=== PATIENT | female | born 1990 | race Two or more races ===

== ENCOUNTER 2024-12-01 22:54 | Emergency (ER) | payer MEDICAID, SELFPAY ==
[2024-12-01 22:55] VITALS: BMI 32.7
[2024-12-01 23:32] VITALS: BP 105/71; PULSE 77; RESP 18; TEMP 37.5; O2SAT 98
--- NOTE | 2024-12-01 23:47 | PD.EDFMALE ---
ED Female Urogenital RME/HPI General Chief complaint: Urogenital-Female Stated complaint: PAIN AND BLOOD IN URINE Time Seen by Provider: 12/01/24 23:46 Arrival date/time: 12/01/24 22:54 34F with no significant PMH presents to ED with 2 days of dysuria/hematuria and pelvic pain. Patient is not on her cycle. Limitations: no limitations Related Data Previous Rx's ?Medication ?Instructions ?Recorded naproxen 500 mg tablet (Naprosyn) 500 mg PO BID #14 tabs 03/12/23 cefuroxime axetil 500 mg tablet 500 mg PO BID 7 days #14 tabs 12/02/24 Allergies Allergy/AdvReac Type Severity Reaction Status Date / Time No Known Allergies Allergy Verified 03/12/23 10:37 Review of Systems Review of Systems Systems Reviewed: All systems reviewed, normal except as documented Genitourinary Genitourinary: Reports as per HPI, Reports dysuria and Reports hematuria Past Medical History Past Medical History NEUROLOGIC: Negative Neurological Disorders or Seizures CARDIAC: Negative Cardiac Disorders or Congestive Heart Failure RESPIRATORY: Negative Chronic Obstructive Pulmonary Disease (COPD) GASTROINTESTINAL: Negative Gastrointestinal Disorders, Hepatitis or Obesity GENITOURINARY: Negative Genitourinary Disorders or Renal Disease REPRODUCTIVE: Negative Breast Cancer MUSCULOSKELETAL: Negative Musculoskeletal Disorders ENDOCRINE: Negative Endocrine Disorders, Diabetes Mellitus Type 1 or Diabetes Mellitus Type 2 HEMATOLOGIC: Negative Blood Disorders OTHER HISTORY: Negative Autoimmune Disease, Blood Transfusions, Blood Transfusion Reaction, Anesthesia Reactions, Organ Transplant, MRSA, Clostridium Difficile or Breast Cancer Family History FAMILY HISTORY: Positive Family Gastrointestinal Problems; Negative Family Psychiatric Problems, Family Respiratory Disorders, Family Cardiac Disorders, Family Cancer, Family Surgery or Family Anesthesia Reaction Surgical History SURGICAL: Positive Tubal Ligation; Negative Endocrine Surgery, Ear Surgery, Abdominal Surgery, Nephrectomy, Joint Replacement, Neurologic Surgery, Mastectomy, Section, Vasectomy or Organ Transplant Social History SMOKING STATUS: Never smoker SUBSTANCE USE: does not use ED Exam General Limitations: Present no limitations General appearance: Present alert and in no apparent distress Head Head exam: Present atraumatic Neck Neck exam: Present normal inspection, full ROM and trachea midline Chest Chest inspection: Present normal inspection and symmetric chest wall rise Extremities Exam Extremities exam: Present normal inspection and full ROM Neurological Exam Neurological exam: Present alert and oriented X3 Psychiatric Psychiatric exam: Present normal affect and normal mood Skin Skin exam: Present warm, dry, intact and normal color Course Quality Measures none Orders Category Date Time Status HCG Qualitative,Urine Stat Lab 12/02/24 00:03 Completed Urinalysis, C/S if Indicated Stat Lab 12/02/24 00:03 Completed Urine Culture Stat Lab 12/02/24 00:03 Received cefuroxime axetiL [cefUROXime axetil] Med 12/02/24 00:39 Once 500 mg PO X1 ONE Vital Signs Vital signs: Vital Signs Temperature 99.5 F 12/01/24 23:32 Pulse Rate 77 12/01/24 23:32 Respiratory Rate 18 12/01/24 23:32 Blood Pressure 105/71 12/01/24 23:32 Pulse Oximetry (%) 98 12/01/24 23:32 Oxygen Delivery Method Room Air 12/01/24 23:32 O2 at 98% on RA and WNLs Urogenital - Female MDM Narrative MDM Narrative:: 34F with no significant PMH presents to ED with 2 days of dysuria/hematuria and pelvic pain. Patient is not on her cycle. Physical exam reveals well-appearing female. Patient is afebrile, calm, and alert. UA suggests UTI. Meds and child care counselor given. HCG neg. Patient data External records reviewed:: [facility] previous records Clinical information provided by:: patient Social determinants that could affect healthcare access:: none Patient has the following chronic illnesses:: none How is presenting disease/condition affected by chronic disease/condition?: no chronic disease Evaluation data The following diagnostics were reviewed and interpreted by me:: lab results Lab and/or radiology exams considered but not ordered:: ordered Interpretation Summary: above Medications / Prescriptions Medications or Prescriptions considered but not ordered:: ordered Medication administrations:: Medication Administration History Cefuroxime Axetil (Cefuroxime Axetil 250 Mg Tablet) 500 mg PO X1 ONE Stop: 12/02/24 00:40 above Consultations Consultation(s) initiated? (list below): No Diagnosis Urogenital Female Differential Diagnosis: urinary tract infection, bacterial vaginosis, trichomoniasis, cervicitis, ovarian cyst, vaginitis, ruptured ovarian cyst, cyst of Bartholin's gland, cystitis and dysmenorrhea Most likely diagnosis given after review of the tests above:: UTI Admission Indicated Admission indicated?: not indicated Admission Request Was there a request for admission?: No Disposition Plan Disposition Plan: Discharge Discharge Attestation Discharge Attestation: The patient and all family members were given an opportunity to ask questions and understood the discharge instructions. Discharge instructions specifically effects, indications for sooner follow up or return to the emergency department, and the expected course of current diagnosis. Patient condition: Stable Discharge Plan Plan Patient Disposition: HOME (Self Care) Discharge Disposition comment: Stable Prescriptions/Referrals Prescriptions/Med Rec: New cefuroxime axetil 500 mg tablet 500 mg PO BID 7 Days Qty: 14 0RF No Action naproxen [Naprosyn] 500 mg tablet 500 mg PO BID Qty: 14 0RF Problem List Clinical Impression: Urinary tract infection Patient/Caregiver Discharge Instructions Education Materials: ED CYSTITIS Female Adult Additional Instructions: Please follow-up with PCP within 24-48 hours and return immediately if symptoms worsen. Print Language: Zambian Stand Alone Forms: Patient Portal Info Letter SADE/AMI Supervising Physician SADE/AMI Supervising Physician: Dr. Laguna
[2024-12-02 00:24] LABS: Collection Type, Urine Clean Catch; Squamous Epithelial Cell,Urine 0 /hpf (0-5)
[2024-12-02 00:35] LABS: Bacteria,Urine 2+; Bilirubin,Urine Negative (Negative); Blood,Urine 3+ (Negative); Color,Urine Yellow (Lt Yel-Yel); Glucose, Urine Negative (Negative); Ketones,Urine Negative (Negative); Leukocyte Esterase,Urine Positive (Negative); Nitrite,Urine Negative (Negative); PH,Urine 6.0 (5.0-7.0); Protein,Urine 1+ (Neg - Trace); RBC,Urine 2832 /hpf (0-3); Specific Gravity,Urine 1.027 (1.001-1.035); Urobilinogen,Urine Negative mg/dL (0.0-1.0); WBC,Urine 708 /hpf (0-5)
[2024-12-02 00:37] LABS: HCG Qualitative,Urine Negative
[2024-12-02 00:38] LABS: Clarity,Urine Turbid (Clear/Hazy); Culture Indicated,Urine Yes
== END 2024-12-02 | disposition home or self-care (01) ==
LOC: SERX 12-02 01:16
PROVIDERS: Physician Assistant; Emergency Provider Emergency Medicine; PCP Family Medicine
DX: N39.0 Urinary tract infection, site not specified (principal)
CPT/HCPCS: 81001; 81025; 87086; 99283; A9270

== ENCOUNTER 2024-12-19 13:34 | Emergency (ER) | payer MEDICAID, SELFPAY ==
[2024-12-19 13:34] VITALS: BMI 32.3
[2024-12-19 15:06] VITALS: BP 119/75; PULSE 60; RESP 18; TEMP 36.6; O2SAT 99
--- NOTE | 2024-12-19 15:34 | XR_ITS ---
Examination: CT lumbar spine, without contrast. 2-D sagittal reconstructions. 2-D coronal reconstructions. 3-D reconstructions. Date and time of exam:December 19, 2024, 1912 hrs. Indications: Patient fell today with injury to the lower back, lower back pain CTDI: vol (mGy):21.8 DLP: (mGycm):800 Technique: Multiple 1.25 mm axial sections of the lumbar spine without intravenous contrast have been obtained. 2-D sagittal and coronal reconstructions have been obtained. 3-D reconstructions have been obtained. Low dose protocols were performed. One or more of the following dose reduction techniques were used; automated exposure control, adjustment of the mA and/or KV according to patient size, use of iterative reconstruction technique. Findings: Mild osteopenia. Adequate alignment lumbar vertebral bodies. No lumbar vertebral body compression fracture. Satisfactory alignment posterior spinous processes. Chronic appearing mild offset at the sacrococcygeal junction Lumbar pedicles, laminae, transverse and posterior spinous processes appear intact L5-S1 2 mm central lumbar disc bulge More cephalad levels are unremarkable Impression: No lumbar fracture No significant acquired lumbar spinal stenosis
--- NOTE | 2024-12-19 15:35 | PD.EDFALL ---
ED Fall Injury RME/HPI General Chief Complaint: Fall Stated Complaint: MID LOWER BACK PAIN S/P FALL YEST. AM Time Seen by Provider: 12/19/24 14:13 Arrival date/time: 12/19/24 13:34 This is a 34-year-old female that comes in with complaints of lower back pain. That started yesterday after fall. Patient states she is unable to lay on her back. Patient denies any loss of bowel or bladder control. Related Data Previous Rx's ?Medication ?Instructions ?Recorded naproxen 500 mg tablet (Naprosyn) 500 mg PO BID #14 tabs 03/12/23 Allergies Allergy/AdvReac Type Severity Reaction Status Date / Time No Known Allergies Allergy Verified 12/19/24 13:37 Course Orders Category Date Time Status CT lumbar spine wo con Stat Exams 12/19/24 15:34 Ordered HCG Qualitative,Urine Stat Lab 12/19/24 15:34 Ordered Urinalysis, C/S if Indicated Stat Lab 12/19/24 15:34 Ordered Vital Signs Vital signs: Vital Signs Temperature 98 F 12/19/24 15:06 Pulse Rate 60 12/19/24 15:06 Respiratory Rate 18 12/19/24 15:06 Blood Pressure 119/75 12/19/24 15:06 Pulse Oximetry (%) 99 12/19/24 15:06 Oxygen Delivery Method Room Air 12/19/24 15:06 Discharge Plan Prescriptions/Referrals Prescriptions/Med Rec: No Action naproxen [Naprosyn] 500 mg tablet 500 mg PO BID Qty: 14 0RF Referrals: Berry Samuels MD [Primary Care Provider, Family Practice] - In 1 week Patient/Caregiver Discharge Instructions Print Language: Malay
--- NOTE | 2024-12-19 17:44 | PD.EDRME ---
Rapid Medical Screening Exam RME Arrival date/time: 12/19/24 13:34 This is a 34-year-old female that comes in with complaints of lower back pain. That started yesterday after fall. Patient states she is unable to lay on her back. Patient denies any loss of bowel or bladder control. I have greeted and performed a focused initial assessment of this patient. Initial appropriate labs ordered at this time. A comprehensive ED assessment and evaluation of the patient and analysis of all test and completion of medical decision making process will be conducted by additional ED provider. Chief Complaint: Fall Time Seen by Provider: 12/19/24 14:13 Vital signs: Vital Signs Temperature 98 F 12/19/24 15:06 Pulse Rate 60 12/19/24 15:06 Respiratory Rate 18 12/19/24 15:06 Blood Pressure 119/75 12/19/24 15:06 Pulse Oximetry (%) 99 12/19/24 15:06 Oxygen Delivery Method Room Air 12/19/24 15:06
--- NOTE | 2024-12-19 18:13 | EDNOTE_ITS ---
ED Back Injury Pain RME/HPI General Chief Complaint: Fall Stated Complaint: MID LOWER BACK PAIN S/P FALL YEST. AM Time Seen by Provider: 12/19/24 14:13 Arrival date/time: 12/19/24 13:34 RME / HPI RME / HPI Narrative: 12/19/24 13:34 This is a 34-year-old female that comes in with complaints of lower back pain. That started yesterday after fall. Patient states she is unable to lay on her back. Patient denies any loss of bowel or bladder control. I have greeted and performed a focused initial assessment of this patient. Initial appropriate labs ordered at this time. A comprehensive ED assessment and evaluation of the patient and analysis of all test and completion of medical decision making process will be conducted by additional ED provider. See [facility] for Dr. Flowers's HPI Documentation. Related Data Previous Rx's ?Medication ?Instructions ?Recorded naproxen 500 mg tablet (Naprosyn) 500 mg PO BID #14 ta bs 03/12/23 acetaminophen 300 mg-codeine 30 mg 2 tab PO Q8H PRN pa in #20 tabs 12/19/24 tablet cyclobenzaprine 10 mg tablet 10 mg PO Q8H PRN muscle s pasm #30 12/19/24 tabs ibuprofen 600 mg tablet 600 mg PO TID PRN fever or p ain 12/19/24 #30 tabs lidocaine 5 % topical patch 2 patch topical QDAY PRN p ain #30 12/19/24 (Lidoderm) ea Allergies Allergy/AdvReac Type Severity Reaction Status Date / Time No Known Allergies Allergy Verified 12/19/24 13:37 Review of Systems Review of Systems Systems Reviewed: All systems reviewed, normal except as documented Past Medical History Family History FAMILY HISTORY: Positive Family Gastrointestinal Problems ED Exam Narrative Physical exam: See [facility] for Dr. Flowers's Physical Exam Documentation. Course Quality Measures none Orders Category Date Time Status CT lumbar spine wo con Stat Exams 12/19/24 15:34 Completed HCG Qualitative,Urine Stat Lab 12/19/24 18:05 Completed Urinalysis, C/S if Indicated Stat Lab 12/19/24 18:05 Completed ACETAMINOPHEN w/COD 300-30 [Tylenol w/Cod #3] Med 12/19/24 18:12 Discontinued 2 tab PO X1 ONE Ibuprofen Tab [Motrin Tab] Med 12/19/24 18:12 Discontinued 600 mg PO X1 ONE Lidocaine 5% Patch Med 12/19/24 18:12 Discontinued 2 patch TOP X1 ONE Vital Signs Vital signs: Vital Signs Temperature 98 F 12/19/24 15:06 Pulse Rate 60 12/19/24 15:06 Respiratory Rate 18 12/19/24 15:06 Blood Pressure 119/75 12/19/24 15:06 Pulse Oximetry (%) 99 12/19/24 15:06 Oxygen Delivery Method Room Air 12/19/24 15:06 Back Pain / Injury MDM Narrative MDM Narrative:: This section includes all my notes and documentations, including HPI, PE, and ED course. Kaushik Flowers MD HPI: 34 y/o female presents with severe lower back pain that radiates into left leg s/p fall approximately 24 hours ago. She had a mechanical fall and landed on her buttocks. No head injury. No paralysis. No numbness or tingling. No loss of control of bladder or bowels. No saddle numbness. No other complaints. ROS: All negative except as documented in HPI. Physical Exam: General: Alert and oriented. Appears uncomfortable. Eyes: Conjunctivae and lids clear. Lungs: No respiratory distress. Abdomen: Soft and nontender. Normal bowel sounds. No distension. No rebound or guarding. Back: Equivocal lumbar spinal tenderness. Skin: Warm and dry. Neuro: Alert and oriented X 3. No peripheral motor deficits. I reviewed all diagnostic test results: My review of the Lumbar CT report is L5-S1 disc bulge. Urine test unremarkable. At this point, diagnoses include: Sciatica Low Back Pain Treatment here included: Tylenol with Codeine #3 Motrin 600 mg Lidocaine 5% Patches She felt better. Recommended outpatient management. Based on my best medical judgment, made decision no further evaluation or treatment indicated at this time. Patient understands and agrees to the discharge instructions customized and printed, see below. Discharge Instructions from Dr. Flowers: --After evaluation, we are dealing with Sciatica (same as Lumbar Radiculopathy or Spinal Stenosis) where pinched nerve is causing your symptoms.? --This condition is difficult because normal pain medications don?t work very well on nerve pain. --Despite the pain, try to resume your normal chores and activities.? Because inactivity is terrible for this condition.? And activity won?t make your condition worse.? Use a cane of stick in your right hand to help stand and walk.? --Use Ibuprofen and Cyclobenzaprine and Tylenol with codeine and lidocaine patches as needed.? Don't expect the pain to go away completely, hoping to take the edge off.?? --When resting and sleeping, try left sided position (with your knees to your chest and bending forward).? This can take some pressure off the nerve and help your pain. --Apply ice or heat if helpful. --See a private doctor (outside the ER) on 12/21/2024 for further care. Ask to help you get more care not available here in the ER.? Such as MRI imaging, physical therapy, and referrals to see specialists.? Some choose to have surgery for this condition. But you need to have MRI imaging to confirm the diagnosis and assess the severity to get the best treatments. --Seek immediate medical care with paralysis in your foot, losing control of your bladder or bowels, saddle numbness (anal numbness), or with any concerns.?? Kaushik Flowers MD Patient data External records reviewed:: [facility] previous records (Reviewed prior ED records from 12/01/24. Patient was seen for Urinary tract infection. ) Clinical information provided by:: patient Social determinants that could affect healthcare access:: none Patient has the following chronic illnesses:: None reported How is presenting disease/condition affected by chronic disease/condition?: no chronic disease Evaluation data The following diagnostics were reviewed and interpreted by me:: lab results and radiology exam(s) Lab and/or radiology exams considered but not ordered:: None Interpretation Summary: I reviewed all diagnostic test results: My review of the Lumbar CT report is L5-S1 disc bulge. Urine test unremarkable. Medications / Prescriptions Medications or Prescriptions considered but not ordered:: None Medication administrations:: Medication Administration History Discontinued Medications Acetaminophen/Codeine Phosphate (Acetaminophen W/Cod 300-30 Tablet) 2 tab PO X1 ONE Stop: 12/19/24 18:13 Last Admin: 12/19/24 19:07 Dose: 2 tab Documented By: GM Ibuprofen (Ibuprofen Tab 600 Mg Tablet) 600 mg PO X1 ONE Stop: 12/19/24 18:13 Last Admin: 12/19/24 19:07 Dose: 600 mg Documented By: GM Lidocaine (Lidocaine 5% 1 Patch) 2 patch TOP X1 ONE Stop: 12/19/24 18:13 Last Admin: 12/19/24 19:07 Dose: 2 patch Documented By: GM Tylenol with Codeine #3 Motrin 600 mg Lidocaine 5% Patches Consultations Consultation(s) initiated? (list below): No Diagnosis Differential diagnosis back pain/injury: lumbar radiculopathy, sciatica, strain of lumbar region, discitis and other (Lumbar back pain) Most likely diagnosis given after review of the tests above:: Sciatica Low Back Pain Admission Indicated Admission indicated?: not indicated Explain why admission is indicated or not indicated:: With significant improvement and no condition needing emergent intervention, there was no indication for admission. Admission Request Was there a request for admission?: No Disposition Plan Disposition Plan: Discharge Discharge Attestation Discharge Attestation: The patient and all family members were given an opportunity to ask questions and understood the discharge instructions. Discharge instructions specifically effects, indications for sooner follow up or return to the emergency department, and the expected course of current diagnosis. Patient condition: Stable Discharge Plan Plan Patient Disposition: HOME (Self Care) Prescriptions/Referrals Prescriptions/Med Rec: New cyclobenzaprine 10 mg tablet 10 mg PO Q8H PRN (Reason: muscle spasm) Qty: 30 0RF acetaminophen-codeine 300-30 mg tablet 2 tab PO Q8H MDD 6 PRN (Reason: pain) Qty: 20 0RF lidocaine [Lidoderm] 5 % adhesive patch,medicated 2 patch topical QDAY PRN (Reason: pain) Qty: 30 0RF Rx Instructions: leave on most painful area for up to 12 hrs ibuprofen 600 mg tablet 600 mg PO TID PRN (Reason: fever or pain) Qty: 30 0RF No Action naproxen [Naprosyn] 500 mg tablet 500 mg PO BID Qty: 14 0RF Referrals: Berry Samuels MD [Primary Care Provider, Family Practice] - In 1 week Problem List Clinical Impression: Low back pain, Sciatica Patient/Caregiver Discharge Instructions Discharge Activity: activity as tolerated Education Materials: ED Sciatica Additional Instructions: Discharge Instructions from Dr. Flowers: --After evaluation, we are dealing with Sciatica (same as Lumbar Radiculopathy or Spinal Stenosis) where pinched nerve is causing your symptoms.? --This condition is difficult because normal pain medications don?t work very well on nerve pain. --Despite the pain, try to resume your normal chores and activities.? Because inactivity is terrible for this condition.? And activity won?t make your condition worse.? Use a cane of stick in your right hand to help stand and walk.? --Use Ibuprofen and Cyclobenzaprine and Tylenol with codeine and lidocaine patches as needed.? Don't expect the pain to go away completely, hoping to take the edge off.?? --When resting and sleeping, try left sided position (with your knees to your chest and bending forward).? This can take some pressure off the nerve and help your pain. --Apply ice or heat if helpful. --See a private doctor (outside the ER) on 12/21/2024 for further care. Ask to help you get more care not available here in the ER.? Such as MRI imag ing, physical therapy, and referrals to see specialists.? Some choose to have surgery for this condition. But you need to have MRI imaging to confirm the diagnosis and assess the severity to get the best treatments. --Seek immediate medical care with paralysis in your foot, losing control of your bladder or bowels, saddle numbness (anal numbness), or with any concerns.?? Print Language: Danish Stand Alone Forms: Karli Award Info., Patient Portal Info Letter
[2024-12-19 18:30] LABS: Collection Type, Urine Voided
[2024-12-19 18:43] LABS: Bilirubin,Urine Negative (Negative); Blood,Urine 2+ (Negative); Clarity,Urine Clear (Clear/Hazy); Color,Urine Yellow (Lt Yel-Yel); Culture Indicated,Urine Not Indicated; Glucose, Urine Negative (Negative); Ketones,Urine 1+ (Negative); Leukocyte Esterase,Urine Negative (Negative); Nitrite,Urine Negative (Negative); PH,Urine 6.5 (5.0-7.0); Protein,Urine Trace (Neg - Trace); RBC,Urine 77 /hpf (0-3); Specific Gravity,Urine 1.026 (1.001-1.035); Squamous Epithelial Cell,Urine 1 /hpf (0-5); Urobilinogen,Urine Negative mg/dL (0.0-1.0); WBC,Urine 10 /hpf (0-5)
[2024-12-19 18:44] LABS: HCG Qualitative,Urine Negative
[2024-12-19] MEDS: ACETAMINOPHEN w/COD 300-30 TABLET 2 TAB PO (19:07)
[2024-12-19] MEDS: LIDOCAINE 5% 1 PATCH 2 PATCH TOP (19:07)
[2024-12-19] MEDS: IBUPROFEN TAB 600 MG TABLET PO (19:07)
[2024-12-19 20:31] VITALS: RESP 16
== END 2024-12-19 20:32 | disposition home or self-care (01) ==
PROVIDERS: Nurse Practitioner Family; Emergency Provider Emergency Medicine; PCP Family Medicine
DX: M51.372 Other intervertebral disc degeneration, lumbosacral region with discogenic back pain and lower extremity pain (principal)
CPT/HCPCS: 72131; 81001; 81025; 99284; J3490; A9270